=== PATIENT | female | born 1930 | race Caucasian/White ===

== ENCOUNTER 2017-03-26 10:11 | Observation (INO) | payer MEDICARE ==
[~2017-03-26] VITALS: Ht 157.5 cm; Wt 50.8 kg
[2017-03-26 10:35] VITALS: BP 135/65
[2017-03-26] MEDS ORDERED: WARF1TAB7 PO (10:55)
[2017-03-26] MEDS ORDERED: SERT50TA PO (10:55)
[2017-03-26] MEDS ORDERED: LOSA25TA5 PO (10:55)
[2017-03-26] MEDS ORDERED: CHOL10002 PO (10:55)
[2017-03-26] MEDS ORDERED: DILT240C80 PO (10:55)
[2017-03-26] MEDS ORDERED: METO25TA35 PO (10:55)
[2017-03-26] MEDS ORDERED: FURO20TA3 PO (10:55)
[2017-03-26] MEDS ORDERED: MAGN400T36 PO (10:55)
[2017-03-26] MEDS ORDERED: NITR0.4T SL (10:55)
[2017-03-26] MEDS ORDERED: VANCOMYCIN 500 MG ONE (12:16)
[2017-03-26] MEDS ORDERED: FENTANYL PF 100 MCG/2ML ONE (12:16)
[2017-03-26] MEDS ORDERED: VANCOMYCIN PMX 1GM/200ML 200 ML ONE (12:16)
[2017-03-26] MEDS ORDERED: LIDOCAINE 2%, 20ML ONE (12:16)
[2017-03-26] MEDS ORDERED: MIDAZOLAM 1 MG/ML, 5ML ONE (12:16)
[2017-03-26 14:31] VITALS: BP 134/73
[2017-03-26] MEDS ORDERED: POTA10TA11 PO (15:03)
[2017-03-26] MEDS ORDERED: NITROGLYCERIN 0.4 MG BOTTLE (25 TABS) SL PRN (16:00)
[2017-03-26] MEDS: LOSARTAN 25MG TABLET PO SCH ×2 (16:00→22:15)
[2017-03-26] MEDS ORDERED: HYDROcodone/APAP 5/325 TABLET PO PRN (17:00)
[2017-03-26 17:16] VITALS: BP 169/92
[2017-03-26] MEDS: METOPROLOL TARTRATE 25 MG TABLET PO SCH (17:18)
[2017-03-26] MEDS: ACETAMINOPHEN 325 MG TABLET PO PRN (17:19)
[2017-03-26 18:38] VITALS: BP 144/84
[2017-03-26] MEDS: CEFAZOLIN PMX 1GM/50ML 50 ML IVPB SCH (22:15)
[2017-03-26] MEDS: SODIUM CHLORIDE FLUSH 10ML SYR IVF SCH (22:16)
[2017-03-27 01:05] VITALS: BP 144/81
[2017-03-27] MEDS: ACETAMINOPHEN 325 MG TABLET PO PRN ×4 (01:20→13:48)
[2017-03-27] MEDS: LOSARTAN 25MG TABLET PO SCH ×2 (06:00→12:14)
[2017-03-27] MEDS: CEFAZOLIN PMX 1GM/50ML 50 ML IVPB SCH (06:12)
[2017-03-27] MEDS: METOPROLOL TARTRATE 25 MG TABLET PO SCH (06:12)
[2017-03-27 07:43] VITALS: BP 156/79
[2017-03-27] MEDS: SODIUM CHLORIDE FLUSH 10ML SYR IVF SCH (07:46)
[2017-03-27] MEDS ORDERED: DILTIAZEM 240 MG CAP.ER.24H PO SCH (09:00)
[2017-03-27] MEDS ORDERED: MAGNESIUM OXIDE 400 MG TABLET PO SCH (09:00)
[2017-03-27] MEDS ORDERED: SERTRALINE 50MG TABLET PO SCH (09:00)
[2017-03-27] MEDS ORDERED: CHOLECALCIFEROL 1,000 UNIT TABLET PO SCH (09:00)
[2017-03-27] MEDS ORDERED: FUROSEMIDE 20 MG TABLET PO SCH (09:00)
[2017-03-27 12:13] VITALS: BP 102/67
[2017-03-27 13:15] VITALS: BP 171/72
[2017-03-27 13:45] VITALS: BP 121/68
== END 2017-03-27 16:44 | disposition home or self-care (01) ==
LOC: CACL 10:11 → 5SO 15:10
PROVIDERS: ADMIT Internal Medicine Cardiovascular Disease; ATTEND Internal Medicine Cardiovascular Disease
DX: I48.0 Paroxysmal atrial fibrillation (principal); I49.5 Sick sinus syndrome; R00.1 Bradycardia, unspecified
CPT/HCPCS: 33208; 71010; 96365; 96375; 99152; 99153; C1779; C1785; C1892; G0378; J0690; J2250; J3010; J3370; J3490